=== PATIENT | female | born 1945 | race Caucasian/White ===

== ENCOUNTER 2017-04-21 12:45 | Emergency (ER) | payer MEDICARE, OTHER ==
[~2017-04-21] VITALS: Ht 152.4 cm; Wt 40.8 kg
[2017-04-21] MEDS ORDERED: HALOPERIDOL2 MG PO (13:11)
[2017-04-21] MEDS ORDERED: LISINOPRIL40 MG PO (13:11)
[2017-04-21] MEDS ORDERED: LITHIUM CARBON300 M1 PO (13:11)
[2017-04-21] MEDS ORDERED: PREDNISONE20 MG PO (17:02)
== END 2017-04-21 17:30 | disposition home or self-care (01) ==
LOC: ED 12:45
DX: K62.89 Other specified diseases of anus and rectum (principal); R19.7 Diarrhea, unspecified; I10 Essential (primary) hypertension; F17.200 Nicotine dependence, unspecified, uncomplicated; Z90.49 Acquired absence of other specified parts of digestive tract; Z79.899 Other long term (current) drug therapy
CPT/HCPCS: 74177; 80053; 80178; 81001; 85025; 99284; J7512; Q9967

== ENCOUNTER 2017-04-27 08:08 | Inpatient (IN) | payer MEDICARE, OTHER ==
[~2017-04-27] VITALS: Ht 152.4 cm; Wt 36.5 kg
[~2017-04-27 08:08] MED LIST: HALOPERIDOL2 MG PO; LISINOPRIL40 MG PO; LITHIUM CARBON300 M1 PO; PREDNISONE20 MG PO
--- NOTE | 2017-04-27 12:10 | NUR ---
PT TO FLOOR AT APPROX 1130. WITH DAUGHTER AND RELOCATION SERVICES SPECIALIST. PT ABLE TO AMBULATE TO BED WITH HELP. GENERALIZED WEAKNESS DUE TO SEVERE RECENT WEIGHTLOSS. PT RATES PAIN 8/10, ADMINISTERED TYLENOL. BP TAKEN ON BOTH SIDES DUE TO DIFFERENCE. LOW ON LEFT AND HIGH ON RIGHT.
--- NOTE | 2017-04-27 13:04 | NUR ---
PT STATES SHE IS STARTING TO WARM UP AND THE TYLENOL WORKED ON HER PAIN SLIGHTLY, RATING IT 6/10
--- NOTE | 2017-04-27 13:59 | NUR ---
GAVE THE PT DARIUS AND YONI TERRAZAS WHICH SHE SAYS SHE WILL WORK ON. DENIES FURTHER CONCERNS.
--- NOTE | 2017-04-27 16:03 | NUR ---
MED REC COMPLETE WTIH REFILL HISTORY
--- NOTE | 2017-04-27 16:51 | NUR ---
PT CALLED TO USE RESTROOM. PT AMBULATED WITH STANDBY ASSIST. ADMINSTERED PREDNISONE AND EXPLAINED TAPERING DOSAGE. DAUGHTER IN ROOM.
--- NOTE | 2017-04-27 18:30 | NUR ---
PT ED ADMIT THIS AFTERNOON. LUNGS DIM. PRODUCTIVE COUGH. 1 PERS. ASSIST. TELE #10 S TACH. NO DIARRHEA SINCE ADMISSION. PAIN 6\10 IN ABDOMEN.
--- NOTE | 2017-04-27 20:23 | NUR ---
patient resting in bed with hob elevated. being evaluated by rt. neb in place. patients lung sounds diminished and clear. r side diminished. patient has shallow breathing. reminded to deep breath. patient hr regular. patient slow to respond but able to respond to all question. alert and oriented. patient stating that she did not need to go to the br at this time. abd is flat. warm to touch. skin dry. nails dirty and long on both finger nails and toe nails. patients face was washed. oral care done. water filled. patient swallowing wnl. patient requesting sleeping medication at this time.
--- NOTE | 2017-04-27 22:57 | NUR ---
PATIENT CALLED TO NURSING STATING AND STATED THAT SHE WAS HAVING ABD PAIN. OFFERED WARM BLANKET. PATIENT REQUESITNG TYLENOL. GAVE TYLENOL WITH STRAWBERRY ENSURE. PATIENT SITTING UP IN BED. SHALLOW BREATH. PATIENT STATING SHE CANNOT TAKE A DEEP BREATH. LUNGS REMAIN CLEAR BUT DIMINISHED. PATIENT CONTINUES TO SAT 94 PERCENT ON RA.
--- NOTE | 2017-04-27 23:45 | NUR ---
enrique assisted to the bsc. patient stating, " tylenol helping a little bit". c/o not being able to sleep. warm wash cloth given to patient. back rub given to patient with lotion. pt stating she feels " sore all over". warm blanket given to patient. call light within reach.
--- NOTE | 2017-04-27 23:59 | NUR ---
patient called to use bsc. assisted with stby assist. patient tolerated well. assisted back to bed. will continue to monitor.
--- NOTE | 2017-04-28 01:30 | NUR ---
patient called to use bsc. pateint requesting warm wash clothes for comfort. patient stating abd starting to hurt. updated on pain medication available. patient already had tylenol. patient stating she would try heat to abd. abd remains tender to touch, soft, and hypoactive. pateint stating she has not been able to sleep tonight. assisted back into bed from bsc. warm blanket given. patient continues to shallow breath. sating greater than 95 percent.
--- NOTE | 2017-04-28 04:39 | NUR ---
patient sleeping at this time. rr even and unlabored. holding breathing treatment due to patient sleeping. will continue to monitor.
--- NOTE | 2017-04-28 04:46 | NUR ---
patient c/o abd pain last night. treated with tylenol. pt had no loose stool on shift. voiding frequently. stby assist to br. iv fluids running wnl. daily levaquin for tx of pneumonia. patient continues to breath very shallow. ra. sating greater than 95 percent. regular diet. encouraged ensure due to patients wt loss
--- NOTE | 2017-04-28 06:21 | NUR ---
patient called for pain medication. tylenol brought in to room. patient stating that she is upset because she only has tylenol. informed patient that i could bring up this consern with dr. foss. pateint stating she does not take any pain medication at home, but she knows that tylenol does not treat what she has. paeint did agree to take tylenol. patient frustrated in regards to pain at this time. repositioned and offered warm blanket. patient stating nothing has help abd pain. now patient is pointing to r side of abd vs. upper midline abd for pain reference.
--- NOTE | 2017-04-28 07:05 | NUR ---
report given to jh clifton. updated on patients plan of care and needs for the day.
--- NOTE | 2017-04-28 07:05 | NUR ---
BEDSIDE HANDOFF REPORT RECEIVED FROM LEATHER REPAIRER RN. PT RESTING IN BED. PT DENIES NEEDS AT THIS TIME.
--- NOTE | 2017-04-28 10:27 | NUR ---
PT RESTING IN BED. IV LEVAQUIN COMPLETED. PT DENIES NEEDS AT THIS TIME.
--- NOTE | 2017-04-28 12:23 | NUR ---
HEPARIN GGT STARTED. DOUBLE RN VERIFICATION WITH ADAM PANTOJA. PT REQUESTING PAIN MEDICATION. 12.5 MCG FENTANYL GIVEN. DAUGHTER AT BEDSIDE, UPDATED ON PLAN OF CARE. PT DENIES NEEDS AT THIS TIME.
--- NOTE | 2017-04-28 12:36 | NUR ---
PT RESTING IN BED. VERY SOFT SPOKEN, SHE WELCOMED ME INTO HER RM. HER IV PUMP ALARM WAS GOING OFF, AND SHE COMMENTED THAT IT WAS REALLY IRRITATING HER. I KNEW THAT I NEEDED TO GET IT TAKEN CARE OF BEFORE WE COULD VISIT. I WAS ABLE TO CONNECT WITH HER NURSE. WILL BE AVAILABLE WHEN NEEDED
--- NOTE | 2017-04-28 14:23 | NUR ---
PT RESTING IN BED. DAUGHT AT BEDSIDE. PT WITH UNBLANCHABLE REDNESS TO SACRUM, ALLEVYN FOAM DRESSING APPLIED. UPDATED PT AND FAMILY ON TRANSFER STATUS. PT DENIES NEEDS AT THIS TIME.
--- NOTE | 2017-04-28 14:55 | NUR ---
PT TRANSFERED TO [facility] VIA [facility]. REPORT CALLED TO ANNA PANTOJA AT [facility]. IV POTASSIUM RIDER INFUSING, HEPARIN INFUSING, IV FLUIDS ON STANDBY. DAUGHTER TO FOLLOW.
== END 2017-04-28 14:45 | disposition short-term general hospital (02) | DRG 393 ==
LOC: ED 08:08 → MS 11:05
PROVIDERS: ADMIT Internal Medicine
DX: K55.059 Acute (reversible) ischemia of intestine, part and extent unspecified (principal); J18.9 Pneumonia, unspecified organism; K52.9 Noninfective gastroenteritis and colitis, unspecified; K62.89 Other specified diseases of anus and rectum; R63.4 Abnormal weight loss; E78.5 Hyperlipidemia, unspecified; I10 Essential (primary) hypertension; I99.9 Unspecified disorder of circulatory system; F17.210 Nicotine dependence, cigarettes, uncomplicated
CPT/HCPCS: 36415; 71010; 74177; 80048; 80053; 81001; 83605; 83735; 84100; 85025; 85610; 85730; 87040; 87070; 87205; 94640; 94762; J1644; J1650; J1956; J2405; J3010; J3480; J7030; J7060; J7512; Q9967

== ENCOUNTER 2019-03-23 11:31 | Emergency (ER) | payer MEDICARE, OTHER ==
[~2019-03-23] VITALS: Ht 152.4 cm; Wt 45.6 kg
[~2019-03-23 11:31] MED LIST changes: +AMLODIPINE BESYL5 MG PO; +BACTRIM DS TAB1 EACH PO; +CLOPIDOGREL75 MG PO; +CREON DR 12,001 EACH PO; +FUROSEMIDE20 MG PO; +FUROSEMIDE40 MG PO; +HALOPERIDOL5 MG PO; +JANTOVEN1 MG PO; +LISINOPRIL-HCT1 EAC1 PO; +LISINOPRIL5 MG PO; +LITHIUM CARBON300 M2 PO; +LITHOBID300 MG PO; +METOPROLOL TART50 MG PO; +MIRTAZAPINE7.5 MG PO; +POTASSIUM CHLOR8 ME1 PO
--- OUTSIDE RECORDS SUMMARY | 2019-03-23 11:34 | XMS ---
PreManage Notification: [facility] [employer] Business Initiatives Manager Events No recent Security Events currently on file CRITERIA MET - [facility] CARE PROVIDERS Kamilla Gonzalez [facility] 11/12/2018-Current PHONE: [phone] EUSEBIO Crawley [facility] Current PHONE: Unknown HARSHA KAPLAN Primary [facility] Current PHONE: Unknown Provider Jamar Monet [facility] Current PHONE: [phone] FARTUN Mancera [facility] 05/24/2011-Long COLEMAN PHONE: Unknown Guidelines Source: [facility] Guidelines Date: 06/22/2018 Care Coordination: PATIENT IS UNDER SERVICES AT [facility].\T\nbsp; IF PATIENT IS SEEN IN THE ED, PLEASE NOTIFY THEM AT [phone].\T\nbsp; IF AFTER HOURS OR ON WEEKENDS PLEASE CALL SWITCHBOARD AT [phone] AND HAVE ON-CALL RN NOTIFIED. E.D. VISIT COUNT (12 MO.) 1 [facility]. TOTAL 1 NOTE: Visits indicate total known visits. ED/UCC VISIT TRACKING (12 MO.) 03/23/2019 11:[address] [facility] TYPE: Emergency COMPLAINT: - COUGH, DIFFICULTY BREATHING INPATIENT VISIT TRACKING (12 MO.) No inpatient visits to display in this time frame [email or web address]
[2019-03-23] MEDS ORDERED: DOXYCYCLINE HY100 MG PO (14:09)
[2019-03-23] MEDS ORDERED: PREDNISONE20 MG PO (14:09)
[2019-03-23] MEDS ORDERED: VENTOLIN HFA18 GM INH (14:09)
--- NOTE | 2019-03-23 17:15 | EKG ---
[facility] [address] [place], [place] [address] Signed Sinus bradycardia with occasional premature ventricular complexes Biatrial enlargement Rightward axis Anterior infarct , age undetermined Abnormal ECG No previous ECGs available Confirmed by DARRYN MIRANDA DO ([id number]) on 03/23/2019 5:15:19 PM Electronically Signed By: DARRYN MIRANDA DO 03/23/19 1715 PATIENT NAME: SUMI LEJUDYALYSA GARCIA MARIN Electrocardiogram DATE OF : 43 PHYSICIAN: DARRYN MIRANDA DO REPORT #: [id number] REPORT IS CONFIDENTIAL AND NOT TO BE RELEASED WITHOUT AUTHORIZATION
== END 2019-03-23 14:20 | disposition home or self-care (01) ==
LOC: ED 11:31
DX: J44.1 Chronic obstructive pulmonary disease with (acute) exacerbation (principal); F17.200 Nicotine dependence, unspecified, uncomplicated; I10 Essential (primary) hypertension; Z90.49 Acquired absence of other specified parts of digestive tract; Z79.01 Long term (current) use of anticoagulants; Z79.899 Other long term (current) drug therapy
CPT/HCPCS: 71046; 80053; 85025; 93005; 93010; 94640; 99284-25; J7512